=== PATIENT | female | born 1940 | race Caucasian/White ===

== ENCOUNTER 2020-07-23 12:18 | Emergency (ER) | payer MEDICARE, BC ==
[~2020-07-23] VITALS: Ht 162.6 cm; Wt 59.9 kg
[2020-07-23] MEDS ORDERED: LEVO-T112 MCG PO (12:44)
[2020-07-23] MEDS ORDERED: EVISTA60 MG PO (12:44)
[2020-07-23] MEDS ORDERED: OXYBUTYNIN 5 MG5 M2 PO (12:44)
[2020-07-23] MEDS ORDERED: NEURONTIN 300M300 M2 PO (12:45)
[2020-07-23] MEDS ORDERED: CYMBALTA30 MG PO (12:45)
[2020-07-23] MEDS ORDERED: SPIRIVA18 MCG INH (12:45)
[2020-07-23] MEDS ORDERED: VITAMIN E1000 UNIT PO (12:49)
[2020-07-23] MEDS ORDERED: ASA81BEC PO (12:49)
[2020-07-23] MEDS ORDERED: EFFER-K 10 MEQ10 ME1 PO (12:49)
[2020-07-23] MEDS ORDERED: CALCIUM500 MG PO (12:49)
[2020-07-23] MEDS ORDERED: VITAMIN D21250 MC1 PO (12:50)
[2020-07-23] MEDS ORDERED: VITAMIN C500 M2 PO (12:50)
[2020-07-23 15:07] LABS: HEMATOCRIT 26.6 % (37.0-47.0); HEMOGLOBIN 8.9 gm/dL (12.0-15.0); MCHC 33.6 g/dL (28.0-37.0); MCV 92.3 fL (80.0-100.0); MPV 6.1 fl. (7.2-11.1); NUCLEATED RBCS 0 /100WBC; PLATELET COUNT* 239 thou/uL (150-400); RBC 2.89 mil/uL (4.20-5.00); RDW-CV 13.2 % (10.5-14.5); WBC 9.2 thou/uL (4.0-11.0)
[2020-07-23 15:24] LABS: CALCIUM 8.4 mg/dL (8.5-10.1); CREATININE 1.1 mg/dL (0.6-1.3); POTASSIUM 4.8 mmol/L (3.5-5.1)
[2020-07-23 15:29] LABS: ALBUMIN 3.4 g/dL (3.4-5.0); TOTAL BILIRUBIN 0.1 mg/dL (<0.1-1.0); TOTAL PROTEIN 6.1 g/dL (6.4-8.2)
[2020-07-23 15:34] LABS: ABSOLUTE LYMPHOCYTES 0.6 thou/uL (0.8-5.3); ABSOLUTE MONOCYTES 0.3 thou/uL (0.0-1.2); ABSOLUTE NEUTROPHILS 8.3 thou/uL (1.6-8.1); PLATELET ESTIMATE ADEQUATE
[2020-07-23] MEDS ORDERED: NORCO5 PO ×4 (17:20→18:38)
[2020-07-23 17:25] VITALS: BP 119/65
== END 2020-07-23 17:54 | disposition home or self-care (01) ==
LOC: M.ERS 12:18
PROVIDERS: Physician Assistant
DX: S22.41XA Multiple fractures of ribs, right side, initial encounter for closed fracture (principal); M54.5 Low back pain; M54.6 Pain in thoracic spine; Z98.51 Tubal ligation status; Z85.42 Personal history of malignant neoplasm of other parts of uterus; Z88.5 Allergy status to narcotic agent; Z88.0 Allergy status to penicillin; Z88.2 Allergy status to sulfonamides; W18.39XA Other fall on same level, initial encounter; Y93.89 Activity, other specified; Y92.89 Other specified places as the place of occurrence of the external cause; Y99.8 Other external cause status